=== PATIENT | male | born 1970 | race Caucasian/White ===

== ENCOUNTER → 2018-06-26 17:53 | Outpatient (CLI) | payer OTHER, SELFPAY ==
[2018-06-16 14:18] VITALS: BMI 27.0
--- NOTE | 2018-06-26 17:56 | CT_ITS ---
STUDY: CT ABDOMEN AND PELVIS WITHOUT CONTRAST REASON FOR EXAM: Male, 47 years old. Left groin pain RADIATION DOSAGE (If Supplied By Facility): CTDIvol = ( 11.11 ) mGy, DLP = ( 622.62 ) mGycm TECHNIQUE: Transaxial images were obtained from the dome of the diaphragm to the symphysis pubis without oral contrast, and without intravenous contrast. Sagittal and coronal images were reconstructed. Individualized dose optimization techniques were used for this CT. COMPARISON: None. FINDINGS: The visualized lung bases are unremarkable. The visualized portions of the heart are within normal limits. Normal liver. Normal gallbladder and extrahepatic biliary system. Normal spleen. Normal pancreas. Normal bilateral adrenal glands. Normal right kidney. Normal left kidney. Normal visualized stomach. Normal small intestine. There is diverticulosis, with thickening of the sigmoid colon wall, and pelvis pericolonic inflammation changes consistent with acute diverticulitis, series 1002 image 127/213. There is non-visualization of the appendix. There is atherosclerotic calcification of the abdominal aorta, without a demonstrated aneurysm. Normal inferior vena cava. Normal retroperitoneum. Normal urinary bladder. There are prostatic calcifications. There is no free fluid in the abdomen or pelvis. Normal abdominal wall. Normal osseous structures. CT/Abdomen/Pelvis without Cont IMPRESSION: Sigmoid diverticulitis. No obstruction or abscess. Electronically Signed: John Santoyo MD at 8:55 EDT , Service support ,
== END ==
PROVIDERS: Family Provider Family Medicine; PCP Family Medicine; Referring Provider Surgery; Visit Provider Surgery
DX: R10.32 Left lower quadrant pain (principal)
CPT/HCPCS: 74176

== ENCOUNTER 2018-07-21 08:18 | Day surgery (SDC) | payer OTHER, SELFPAY ==
[2018-06-16 14:18] VITALS: BMI 27.0
[2018-07-21] VITALS (7 sets, daily range): BP systolic 116–138; BP diastolic 75–97; PULSE 78–89; RESP 18–20; TEMP 36.3–36.6; O2SAT 95–99; BMI 25.9
--- NOTE | 2018-07-21 | COLBX_PTH ---
PATIENT: HERIBERTO HORN LOC: EN U#:[id number] AGE/SX: 47/M ROOM: RE07/21/[address]: Dr. Maikel Walton MD : 1970 BED: DIS: 07/21/2018 SPEC #: [id number] RECD: 07/21/18 13:36 STATUS: BRIAN HERMAN #: [id number] MIQUEL: 07/21/18 00:[address]: Maikel Walton DEPT: SURGICAL PATHOLOGY RECD BY: Rafiq Elmore ENTERED: 07/21/18 13:36 SP TYPE: COLON BX OTHR DR: Dr. Bonifacio Light MD Tissues: Sigmoid colon biopsy Procedures: Trichrome (control) Special Stain Group II Surgery Specimen Level IV HEADER OPERATION: Colonoscopy (MAC) PRE-OP DIAGNOSIS: Abnormal CT TISSUE SUBMITTED: Sigmoid colon biopsies MICROSCOPIC DIAGNOSIS Sigmoid colon, biopsy: Fragments of colonic mucosa, no pathologic diagnosis. See comment. FRIEDA:kostas 07/24/18 COMMENT Trichrome stain with matched control is used in the evaluation of the specimen and does not show any significant thickening of subepithelial collagen band. Correlation with clinical, endoscopic findings and appropriate follow up are necessary. Case has been reviewed in consultation with Dr. Davis who concurs with the above diagnosis. IDC:AM MICROSCOPIC DESCRIPTION Slides are reviewed. GROSS DESCRIPTION Received in fixative is one container labeled with the patient's name and designated sigmoid colon biopsy. The specimen consists of multiple irregular fragments of light bazzi soft tissue that in aggregate measure 0.5 x 0.3 x 0.1 cm. The specimen is totally submitted in one cassette. / SJ:kostas 07/21/18 TC:4 CPT: 97741, 54438
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
--- NOTE | 2018-07-21 09:59 | OP.ENDO_ITS ---
07/21/2018 Bonifacio Light [address] [place] [address] Re : Colonoscopy procedure for Reynaldo Fitzpatrick Dear Dr. Light This procedure was performed on Saturday, July 21, 2018. My impressions and recommendations are as follows: Impressions : - Congested mucosa in the sigmoid colon. Biopsied. - The examination was otherwise normal on direct and retroflexion views. Recommendations : - Discharge patient to home. - Resume previous diet. - Continue present medications. - Await pathology results. - Repeat colonoscopy for surveillance based on pathology results. My findings are described in the full procedure note, which is enclosed. If I can be of further assistance, please feel free to contact me at Doctor phone number(s): , Work: . Sincerely, Maikel Walton MD 07/21/2018 9:58:56 AM This report has been signed electronically.
== END 2018-07-21 10:42 | disposition home or self-care (01) ==
LOC: EN 08:20 → AC 08:21
PROVIDERS: Family Provider Family Medicine; PCP Family Medicine; Referring Provider Family Medicine; Visit Provider Surgery
PROC: 0DJD8ZZ Inspection of Lower Intestinal Tract, Via Natural or Artificial Opening Endoscopic (ICD-10-PCS; CPT 45378; principal; 2018-07-21 09:10)
DX: K63.89 Other specified diseases of intestine (principal); R93.3 Abnormal findings on diagnostic imaging of other parts of digestive tract; F17.200 Nicotine dependence, unspecified, uncomplicated
CPT/HCPCS: 45380; 88305; 88313; J7120